=== PATIENT | male | born 1930 | race Asian ===

== ENCOUNTER 2018-04-28 11:08 | Emergency (ER) | payer MEDICARE, OTHER ==
[~2018-04-28] VITALS: Ht 167.6 cm; Wt 61.3 kg
[2018-04-28 11:45] VITALS: BP 167/67; PULSE 69; RESP 20; Ht 167.6 cm; Wt 61.3 kg
[2018-04-28] MEDS ORDERED: NAPR-985 PO (13:34)
[2018-04-28] MEDS ORDERED: MED4DP PO (13:34)
[2018-04-28] MEDS ORDERED: KETOROLAC 60 MG INJ IM STA (13:54)
--- NOTE | 2018-04-28 14:46 | ERD ---
ER Documentation Chief Complaint Chief Complaint Complains of left foot anf ankle pain x 1 week HPI 87-year-old male presenting with pain to the medial aspect of the left tibia. Patient denies any falls or injuries. He denies any swelling or fevers. Denies any numbness or tingling. Has not taken any medications for the symptoms. Denies other medical problems. NKDA. Surgical history denies. Social history denies ROS All systems reviewed and are negative except as per history of present illness. Medications Home Meds Active Scripts Methylprednisolone* (Medrol* DOSE PACK) 4 Mg/Dose-Pack Tab.ds.pk, 4 MG PO . DIRECTED, #1 PACKET Prov:DMITRI WELLS PA-C 04/28/18 Naproxen* (Naprosyn*) 500 Mg Tablet, 500 MG PO BID PRN for PAIN AND/OR INFLAMMATION, #30 TAB Prov:DMITRI WELLS PA-C 04/28/18 Allergies Allergies: Coded Allergies: No Known Allergy (Unverified , 04/28/18) PMhx/Soc History of Surgery: Yes (Bilateral Catarct Sx) Anesthesia Reaction: No Hx Neurological Disorder: Yes (Vertigo) Hx Respiratory Disorders: Yes (Asthma) Hx Psychiatric Problems: Yes (anxiety) Hx Miscellaneous Medical Probl: Yes (Prostate problem,constipation,hyperlipidemia,GERD) Hx Alcohol Use: No Hx Substance Use: No Hx Tobacco Use: Yes Smoking Status: Former smoker FmHx Family History: No diabetes, No coronary disease, No other Physical Exam Vitals Vital Signs Date Temp Pulse Resp B/P (MAP) Pulse Ox O2 O2 Flow FiO2 Time Delivery Rate 04/28/18 98.7 69 20 167/67 95 11:45 (100) Physical Exam GENERAL: The patient is well-appearing, well-nourished, in no acute distress CHEST: Clear to auscultation bilaterally. There are no rales, wheezes or rhonchi. HEART: Regular rate and rhythm. No murmurs, clicks, rubs or gallops. EXTREMITIES: Equal pulses bilaterally. There is no peripheral clubbing, cyanosis or edema. No focal swelling or erythema. Full range of motion. Grossly neurovascularly intact. NEUROLOGIC: Alert and oriented. Cranial nerves II through XII intact. Motor strength in all 4 extremities with 5 out of 5 strength. Sensation grossly intact. Normal speech and gait. SKIN: There is no apparent rash or petechiae. The skin is warm and dry. Results 24 hrs Current Medications Medications Dose Sig/Lawanda Start Time Status Last (Trade) Ordered Route PRN Stop Time Admin Dose Reason Admin Ketorolac 60 mg ONCE STAT 04/28/18 DC 04/28/18 Tromethamine IM 13:54 13:59 (Toradol) 04/28/18 13:55 Procedures/MDM ER course: Toradol given ED. MDM: 87-year-old male presenting with pain to the medial aspect of the left lower leg. Patient's exam is non-concerning. There are no findings consistent with infection or fracture. I have low suspicion for tendon or ligament rupture. I have low suspicion for neurovascular deficit. Patient is discharged stricter precautions and told to follow-up with primary care within 1-2 days for close evaluation. Patient is told symptoms change or worsen to return immediately to the ER. All questions answered at discharge Departure Diagnosis: Primary Impression: Foot pain Condition: Stable Patient Instructions: Contusion, Foot Referrals: [facility] YOU HAVE RECEIVED A MEDICAL SCREENING EXAM AND THE RESULTS INDICATE THAT YOU DO NOT HAVE A CONDITION THAT REQUIRES URGENT TREATMENT IN THE EMERGENCY DEPARTMENT. FURTHER EVALUATION AND TREATMENT OF YOUR CONDITION CAN WAIT UNTIL YOU ARE SEEN IN YOUR DOCTORS OFFICE WITHIN THE NEXT 1-2 DAYS. IT IS YOUR RESPONSIBILITY TO MAKE AN APPOINTMENT FOR FOLOW-UP CARE. IF YOU HAVE A PRIMARY DOCTOR --you should call your primary doctor and schedule an appointment IF YOU DO NOT HAVE A PRIMARY DOCTOR YOU CAN CALL OUR PHYSICIAN REFERRAL HOTLINE AT IF YOU CAN NOT AFFORD TO SEE A PHYSICIAN YOU CAN CHOSE FROM THE FOLLOWING [facility] [id number] [facility]. [facility] [address] [address] [facility] [facility] [address] [facility]. [facility] [address] [facility]. [facility]. [address] Additional Instructions: FOLLOW UP WITH YOUR PRIMARY CARE PHYSICIAN TOMORROW.Return to this facility if you are not improving as expected. DMITRI WELLS PA-C Apr 28, 2018 14:46
== END 2018-04-28 14:47 | disposition home or self-care (01) ==
LOC: FTE 11:08
DX: M79.672 Pain in left foot (principal); J45.909 Unspecified asthma, uncomplicated; Z87.891 Personal history of nicotine dependence
CPT/HCPCS: 96372; 99284; J1885